=== PATIENT | female | born 1950 | race Caucasian/White ===

== ENCOUNTER 2016-05-04 08:38 | Inpatient (IN) | payer OTHER ==
[~2016-05-04] VITALS: Ht 167.6 cm; Wt 128.8 kg
--- NOTE | ~2016-05-04 | HC ---
[facility] [place] [address] CONSULTATION Name: CHRIS FLORES Room #: 432-P ADM IN M.R.#: [id number] Admission: 05/04/16 Attend Phys: Federico Crenshaw MD Discharge: Date of : 52 Report #: [id number] THIS REPORT FOR: //name// CC: Federico MACKAY HISTORY OF PRESENT ILLNESS: The patient is a 65-year-old white female with history of diabetes mellitus type 2, hypertension, premorbid, intermittent sciatica of the left leg who was admitted with significant bilateral lower extremity weakness and inability to walk. She underwent an MRI scan, which showed multilevel degenerative arthritis with moderate stenosis. She does have significant degenerative arthritis. She indicates she has had gout in the past, but her uric acid was noted to be normal, sed rate was only 14, uric acid was 5.9, which is normal. Neurology has seen her and she was noted to have some signs of neuropathy as well that could be due to her diabetes mellitus or her low B12. B12 was noted to be 313 with folate low at 5.5. She has had significant functional mobility deficits and although she premorbidly was independent and ambulatory. She has been nonambulatory. She has had pain of both feet with weakness of both feet and some pain of the left proximal leg with the prior history of sciatica. She notes that she does not feel her legs will hold her with concerns with buckling of the left knee. PAST MEDICAL HISTORY: Includes cholecystectomy, right rotator cuff repair, prior left total knee replacement, hypertension, jra-leictpj-xyluoflnk diabetes mellitus, morbid obesity, GERD, depression, and anxiety. HABITS: Nonsmoker, history of some ETOH usage. MEDICATIONS: Please see the full medication listing. ALLERGIES: MORPHINE and MEPERIDINE. SOCIAL HISTORY: Lives with her , house one step, did not utilize gait aids and was doing volunteer work. Her works part-time, selling used cars. There is a son that is in and out that can assist. She premorbidly was active and volunteering without gait aids. REVIEW OF SYSTEMS: Left proximal lower extremity pain is better. She has pain and numbness of both distal lower extremities. Denies any hand weakness per se. No chest pain, shortness of breath, or abdominal discomfort. PHYSICAL EXAMINATION: GENERAL: A 65-year-old morbidly obese white female, in no obvious distress. She is alert, oriented, appropriate. VITAL SIGNS: Last recorded weight 284 pounds with height 5 feet 6 inches. HEENT: Appeared to be benign. Cranial nerves are grossly intact. Facies are symmetric. [address] [address] CONSULTATION Name: CHRIS FLORES Room #: 432-P [facility] IN .R.#: [id number] Admission: 05/04/16 Attend Phys: Federico Crenshaw MD Discharge: Date of : 52 Report #: [id number] EXTREMITIES: She has functional range of motion of both upper extremities with good strength of her hand intrinsics. In her lower extremities, her left knee incision is well healed. There is no focal calf swelling. Proximal strength is a grade 4+/5, both lower extremities, hips and knees, but left ankle and right ankle are both only a grade 3+ dorsiflexion, 2+ -3- eversion, bilateral toe dorsiflexion is probably a grade 3+. She does have decreased distal sensation to proprioception bilateral large toes. She is standby assistance with supine to sit, has done some sliding board transfers, but has been unable to ambulate to this point. ASSESSMENT: A 65-year-old white female with the following problem list: 1. Probable polyneuropathy, likely a component of diabetes mellitus and low vitamin B12 and folate. 2. Multiple level degenerative arthritis of her lumbosacral spine. 3. Premorbid sciatica of the left lower extremity. 4. Inability to ambulate with significant functional mobility and activities of daily living deficits. 5. Prior left total knee arthroplasty. 6. Prior history of gout with normal uric acid. PLAN: Therapies are continuing to work with her. Insurance will be checked regarding an acute in-hospital inpatient rehabilitation stay. From a preadmission screening perspective: 1. Prior level of function is well delineated above. 2. Expect level of improvement would be for the patient to improve with her mobility and ADLs, transfers, gait, so that she can hopefully return back to her prior living situation. 3. Evaluation of the patient's risk for clinical complications. She does have multiple medical comorbidities as noted above. 4. Condition that caused the need for rehabilitation would appear to be the multifactorial polyneuropathy as well as the moderate lumbosacral degenerative arthritis and her premorbid sciatica. 5. Treatments needed would include PT and OT 1-1-1/2 hours per day each five days a week throughout the duration of the acute inpatient rehabilitation stay. 6. Anticipated discharge destination would be back to the home setting. 7. We would anticipate home healthcare therapies once ready to return back home. <ELECTRONICALLY SIGNED> By: Gurdeep Thompson MD 05/07/16 1513 1202 1534 Gurdeep Thompson MD /nt
--- NOTE | ~2016-05-04 | EKG ---
[place] [address] [facility] [place] [address] ELECTROCARDIOGRAM REPORT Name: CHRIS FLORES Room #: [facility]#: [id number] Admission: 05/04/16 Attend Phys: Discharge: Date of : 52 Report #: [id number] THIS REPORT FOR: //name// [facility] ED Test Date: 2016-05-04 Test Time: 09:08:03 Pat Name: CHRIS FLORES Department: Room: Gender: F Theatre Manager: noelleregis : 1950 Requested By: Orlando Mason Order Number: [id number] MD: Kelvin Colón Measurements Intervals [place] Rate: 96 P: 18 MA: 187 QRS: 13 QRSD: 95 T: 2 QT: 341 QTc: 431 Interpretive Statements Sinus rhythm Probable left atrial enlargement Low voltage, precordial leads No previous ECG available for comparison Electronically Signed On 05-04-2016 13:18:57 TRAIN CLERK by Kelvin Colón [email or web address] <ELECTRONICALLY SIGNED> By: Kelvin Colón MD 05/04/16 1318 0908 7 Kelvin Colón MD /ROBB
[~2016-05-04 08:38] MED LIST: AMITIZA 24 MCG24 MC1 PO; AVAPRO PO; AXID300 MG PO; AYGESTIN 5 MG TA5 M1 PO; INDAPAMIDE2.5 MG PO; LORTAB 7.5/5001 TA3; NEXIUM40 MG PO; POTASSIUM; WELLBUTRIN PO; [UNRECOGNIZED DRUG - OTHER] PO
[2016-05-04] MEDS ORDERED: METFORMIN HCL500 MG PO (08:42)
[2016-05-04] MEDS ORDERED: ULORIC40 MG PO (08:43)
[2016-05-04] MEDS ORDERED: ASPIRIN325 PO (08:43)
[2016-05-04] MEDS ORDERED: PROAIR HFA8.5 GM (08:44)
[2016-05-04 09:09] LABS: ABSOLUTE NEUTROPHILS 8.4 thou/uL (1.4-8.2); BASOPHILS 0.3 % (0.0-2.0); EOSINOPHILS 0.1 % (0.0-3.0); HEMATOCRIT 41.6 % (37.0-47.0); LYMPHOCYTES 15.3 % (24.0-44.0); MANUAL DIFF NO; MCH 29.3 pg (26.0-34.0); MCHC 33.7 g/dL (28.0-37.0); MONOCYTES 4.4 % (1.0-8.0); PLATELET COUNT 254 thou/uL (150-400); POLYS 79.9 % (36.0-66.0); RBC 4.78 mil/uL (4.20-5.00); RDW 13.9 % (10.5-14.5); WBC 10.5 thou/uL (4.0-11.0)
[2016-05-04 09:43] LABS: ANION GAP 8 mmol/L (7-16); BUN 19 mg/dL (7-18); CALCIUM 8.8 mg/dL (8.5-10.1); CHLORIDE 104 mmol/L (98-107); CO2 25 mmol/L (21-32); CREATININE 1.4 mg/dL (0.6-1.3); GLUCOSE 160 mg/dL (70-99); POTASSIUM 3.7 mmol/L (3.5-5.1); SODIUM 137 mmol/L (136-145)
[2016-05-04 09:51] LABS: ALBUMIN 3.2 g/dL (3.4-5.0); ALKALINE PHOSPHATASE 103 U/L (46-116); SGOT 22 U/L (15-37); SGPT 27 U/L (30-65); TOTAL BILIRUBIN 0.3 mg/dL (<0.1-1.0); TOTAL PROTEIN 6.7 g/dL (6.4-8.2); TROPONIN-I < 0.04 ng/mL (<0.04-0.07)
[2016-05-04 10:51] LABS: URINE BILIRUBIN NEGATIVE (Negative); URINE BLOOD NEGATIVE (Negative); URINE COLOR YELLOW; URINE GLUCOSE-RANDOM* TRACE (Negative); URINE KETONES NEGATIVE (Negative); URINE LEUKOCYTES-REFLEX NEGATIVE (Negative); URINE PROTEIN (DIPSTICK) NEGATIVE (Negative); URINE SPECIFIC GRAVITY 1.015 (1.003-1.035); URINE UROBILINOGEN 0.2 E.U./dl (0.2-1.0)
[2016-05-05 03:07] LABS: GLYCOHEMOGLOBIN (HGB A1C) 7.8 % (4.8-5.6)
[2016-05-05 05:25] LABS: HEMATOCRIT 38.6 % (37.0-47.0); HEMOGLOBIN 12.8 gm/dL (12.0-15.0); MCH 29.1 pg (26.0-34.0); MCHC 33.1 g/dL (28.0-37.0); MCV 87.9 fL (80.0-100.0); RBC 4.39 mil/uL (4.20-5.00); RDW 13.7 % (10.5-14.5); WBC 9.4 thou/uL (4.0-11.0)
[2016-05-05 06:03] LABS: CALCIUM 8.6 mg/dL (8.5-10.1); CREATININE 1.3 mg/dL (0.6-1.3); POTASSIUM 3.4 mmol/L (3.5-5.1)
[2016-05-05 06:05] LABS: CHOLESTEROL 166 mg/dL (<200); HDL CHOLESTEROL 32 mg/dL (>40); LDL CHOLESTEROL 105 mg/dL (<100); TC:HDL 5.2 Ratio (Not establshd); TRIGLYCERIDE 149 mg/dL (<150); URIC ACID* 5.9 mg/dL (2.6-7.2); VLDL 30 mg/dL (<40)
[2016-05-05 06:08] LABS: SERUM ASSESSMENT Clear
[2016-05-05 07:22] LABS: FOLIC ACID 5.5 ng/mL (8.6-58.9); TSH 4.018 uIU/mL (0.358-3.740)
[2016-05-06 06:12] LABS: ABSOLUTE NEUTROPHILS 6.5 thou/uL (1.4-8.2); BASOPHILS 0.7 % (0.0-2.0); EOSINOPHILS 0.9 % (0.0-3.0); HEMATOCRIT 37.7 % (37.0-47.0); HEMOGLOBIN 12.7 gm/dL (12.0-15.0); LYMPHOCYTES 25.1 % (24.0-44.0); MCH 29.5 pg (26.0-34.0); MCHC 33.7 g/dL (28.0-37.0); MCV 87.7 fL (80.0-100.0); MONOCYTES 8.5 % (1.0-8.0); PLATELET COUNT 208 thou/uL (150-400); POLYS 64.8 % (36.0-66.0); RDW 13.9 % (10.5-14.5); WBC 10.1 thou/uL (4.0-11.0)
[2016-05-06 06:22] LABS: CALCIUM 8.6 mg/dL (8.5-10.1); CREATININE 1.5 mg/dL (0.6-1.3); POTASSIUM 3.9 mmol/L (3.5-5.1)
[2016-05-06 06:36] LABS: MANUAL DIFF NO
[2016-05-07] MEDS ORDERED: NORCO 5-325 TA1 EACH PO (12:17)
[2016-05-07] MEDS ORDERED: ASPIRIN325 PO (12:17)
[2016-05-07] MEDS ORDERED: LIPITOR10 MG PO (12:17)
[2016-05-07] MEDS ORDERED: B12INJ IM (12:17)
[2016-05-07] MEDS ORDERED: ENOXAPARIN40 MG/0.1 SUBQ (12:17)
[2016-05-08 15:12] LABS: HEMATOCRIT 35.4 % (37.0-47.0); HEMOGLOBIN 11.7 gm/dL (12.0-15.0); MCH 29.4 pg (26.0-34.0); MCHC 33.1 g/dL (28.0-37.0); MCV 88.9 fL (80.0-100.0); RBC 3.98 mil/uL (4.20-5.00); RDW 14.3 % (10.5-14.5); WBC 8.1 thou/uL (4.0-11.0)
[2016-05-08 15:23] LABS: CALCIUM 8.8 mg/dL (8.5-10.1); CREATININE 1.8 mg/dL (0.6-1.3); MAGNESIUM 1.5 mg/dL (1.8-2.4); POTASSIUM 4.8 mmol/L (3.5-5.1)
[2016-05-13 13:44] LABS: CALCIUM 8.9 mg/dL (8.5-10.1); CREATININE 2.5 mg/dL (0.6-1.3)
== END 2016-05-13 16:02 | DRG 74 ==
LOC: ER 08:38 → EROBS 14:32 → 4E 14:32
PROVIDERS: Family Medicine; Hospitalist; Internal Medicine Geriatric Medicine; Physician Assistant; Psychiatry & Neurology Neurology; Registered Nurse
DX: E11.40 Type 2 diabetes mellitus with diabetic neuropathy, unspecified (principal); Z68.42 Body mass index [BMI] 45.0-49.9, adult; N17.9 Acute kidney failure, unspecified; R20.9 Unspecified disturbances of skin sensation; R53.1 Weakness; I10 Essential (primary) hypertension; R20.0 Anesthesia of skin; M47.897 Other spondylosis, lumbosacral region; K21.9 Gastro-esophageal reflux disease without esophagitis; E66.01 Morbid (severe) obesity due to excess calories; G89.29 Other chronic pain; F32.9 Major depressive disorder, single episode, unspecified; F41.9 Anxiety disorder, unspecified; M54.5 Low back pain; E78.5 Hyperlipidemia, unspecified; R15.9 Full incontinence of feces; R26.9 Unspecified abnormalities of gait and mobility; M10.9 Gout, unspecified; M54.32 Sciatica, left side; Z96.652 Presence of left artificial knee joint; Z88.6 Allergy status to analgesic agent; Z79.4 Long term (current) use of insulin; Z90.49 Acquired absence of other specified parts of digestive tract; Z79.899 Other long term (current) drug therapy
CPT/HCPCS: 10183

== ENCOUNTER 2016-05-23 21:30 | Inpatient (IN) | payer OTHER ==
[~2016-05-23] VITALS: Ht 167.6 cm; Wt 122.6 kg
--- NOTE | ~2016-05-23 | EKG ---
[address] [address] ELECTROCARDIOGRAM REPORT Name: CHRIS FLORES Room #: 311-P ADM IN M.R.#: [id number] Admission: 05/23/16 Attend Phys: Adi Saucedo MD Discharge: Date of : 52 Report #: [id number] THIS REPORT FOR: //name// [facility] ED Test Date: 2016-05-23 Test Time: 21:50:10 Pat Name: CHRIS FLORES Department: Room: [facility] Gender: F Foot Tender: Geoffrey HERRERA : 1950 Requested By: Octavia King Order Number: [id number] MD: Jovan Chowdary Measurements Intervals [place] Rate: 112 P: -42 ND: 137 QRS: 34 QRSD: 78 T: -1 QT: 306 QTc: 418 Interpretive Statements Sinus tachycardia Probable left atrial enlargement Borderline T abnormalities, inferior leads Compared to ECG 05/04/2016 09:08:03 no change Electronically Signed On 05-24-2016 11:26:44 CDT by Jovan Chowdary [email or web address] <ELECTRONICALLY SIGNED> By: Jovan Chowdary MD 05/24/16 1126 49 49 Jovan Chowdary MD /EPI
--- NOTE | ~2016-05-23 | H ---
[facility] [place] [address] HISTORY AND PHYSICAL Name: CHRIS FLORES Room #: 311-P ADM IN M.R.#: [id number] Admission: 05/23/16 Attend Phys: Denae Beck MD Discharge: Date of : 52 Report #: [id number] THIS REPORT FOR: //name// CC: Adi MCCLAIN DATE OF SERVICE: 05/23/2016 ATTENDING PHYSICIAN: Dr. Adi Saucedo. PRIMARY CARE PHYSICIAN: Dr. Russell Mcclain. CHIEF COMPLAINT: Fevers, chills and weakness. HISTORY OF PRESENT ILLNESS: The patient is a 65-year-old obese female who came in to the ER complaining of fever, nausea, vomiting and chills with increasing lower extremity weakness. She was recently admitted here for apparently sudden onset of lower extremity weakness. It has been worse on the right lower extremity and she was having bilateral lower extremity paresthesias with this. Her MRI showed moderate spinal stenosis. She was never evaluated by orthopedic or spinal surgery, but was sent to a rehab facility. She was also seen by pain management and had steroid shots last week, which she says seemed to have helped a little bit. She actually was feeling gaining some strength back and was ambulating better at rehab up until the last 2 days. She says she has been feeling very ill. She has been having fevers with chills, nausea and vomiting. She really has not had much of an appetite and has not been eating much, but is keeping some fluids down. Her weakness has gotten worse over the last 2 days as well. She is denying any abdominal pain. Denies any diarrhea. She actually feels constipated. She was noted in the ER to have significant UTI and has been admitted for further treatment. PAST MEDICAL HISTORY: Renal cancer, diabetes, depression, anxiety, GERD, obesity, diabetic neuropathy, gout, sciatica, hypertension, hyperlipidemia, chronic kidney disease stage III. PAST SURGICAL HISTORY: Left nephrectomy, , right rotator cuff repair, D and C x 2 and a cholecystectomy. ALLERGIES: MORPHINE AND DEMORAL. HOME MEDICATIONS: Phenergan p.r.n., albuterol inhaler p.r.n., Lipitor 10 mg daily, aspirin 325 mg daily, [place] p.r.n., bupropion 450 mg daily, Zofran p.r.n., Nizatidine 300 mg at bedtime, Nexium 40 mg every other day, Glucophage 500 mg b.i.d., vitamin B12 IM daily, Uloric 40 mg daily and Avapro 150 mg daily. SOCIAL HISTORY: The patient denies any tobacco use. She only uses alcohol on [facility] [address] [place] [address] HISTORY AND PHYSICAL Name: SANDRACHRIS J Room #: 311-P [facility] IN M.R.#: [id number] Admission: 05/23/16 Attend Phys: Denae Beck MD Discharge: Date of : 52 Report #: [id number] special occasions. She lives at home with her spouse, but currently is in rehab. FAMILY HISTORY: No significant family history. REVIEW OF SYSTEMS: During her last admission, her creatinine was 2.5 on 05/13 when she was discharged and her baseline creatinine is around 1.8. Otherwise, 12-point review of systems was reviewed with the patient, otherwise negative unless stated in the HPI. PHYSICAL EXAMINATION: GENERAL: The patient is an alert, obese female, in no acute distress. VITAL SIGNS: Temperature max is 39.6, heart rate 118, respirations 26, blood pressure 149/73 on arrival, is now 100/64, oxygen 92% on room air. HEENT: PERRLA. Sclerae is nonicteric. Oral mucosa is pink and dry. NECK: Supple, no JVD is noted. CARDIOVASCULAR: Normal S1, S2. No murmurs, rubs or gallops. RESPIRATORY: Breath sounds are clear bilaterally, somewhat diminished in both bases. Breathing is nonlabored. ABDOMEN: Obese, soft. She is slightly tender in the suprapubic area. Bowel sounds are positive. VASCULAR: 1+ bilateral lower extremity edema. Pedal pulses are 2+. NEUROLOGIC: The patient is alert and oriented x 3. Speech is clear. She is moving all extremities equally. No focal neuro deficits noted. LABORATORY DATA AND DIAGNOSTICS: WBC is 17.9, hemoglobin 12.1, platelets 247. Sodium 133, potassium 4.0, BUN 23, creatinine 2.0, glucose 128. Lactate 1.4 and liver enzymes are normal. CK 660. Troponins negative. BNP is 986. Albumin is 2.8. UA is positive for protein in blood and nitrite and 3+ leukocyte esterase, many wbcs. Chest x-ray showed mild bibasilar atelectasis, but no acute process. EKG shows sinus tachycardia with some PVCs. ASSESSMENT AND PLAN: 1. Systemic inflammatory response syndrome. Likely, related to underlying urinary tract infection. The patient has been admitted for IV antibiotics. We will continue with Rocephin. Urine and blood have been sent for cultures. 2. Bilateral lower extremity weakness. Previously, this was felt to be related to lumbar stenosis. She will continue with physical therapy. She just had steroid injection last week after discharge, which she thinks is helping with the pain. 3. Diabetes type 2. Add sliding scale insulin, but hold metformin because of elevated creatinine. 4. History of hypertension. The patient does have current hypotension likely related to infection. We will hold her home medications and monitor blood pressure closely. 5. Mild rhabdomyolysis. Etiology is unknown. We will gently hydrate and [facility] [address] [place] [address] HISTORY AND PHYSICAL Name: CHRIS FLORES Room #: 311-P ADM IN M.R.#: [id number] Admission: 05/23/16 Attend Phys: Denae Beck MD Discharge: Date of : 52 Report #: [id number] repeat a CPK in the morning. 6. Acute kidney injury on chronic kidney disease stage III. Likely, component of dehydration as well as medications. We will hold metformin and gently hydrate. Repeat labs in the morning. 7. Deep vein thrombosis prophylaxis. Place SCDs. We will continue to follow the patient closely throughout the hospitalization and make changes based on clinical status. <ELECTRONICALLY SIGNED> By: SUNG Sam 05/26/16 0658 0704 0921 SUNG Sam /nt
--- NOTE | ~2016-05-23 | HC ---
[facility] [place] [address] CONSULTATION Name: CHRIS FLORES Room #: 311-P [facility] IN M.RRosalee#: [id number] Admission: 05/23/16 Attend Phys: Denae Beck MD Discharge: 05/28/16 Date of : 51 Report #: [id number] THIS REPORT FOR: //name// CC: Denae MACKAY DATE OF SERVICE: 05/27/2016 HISTORY OF PRESENT ILLNESS: The patient is a 65-year-old white female, previously known to me, with a history of diabetes mellitus type 2, hypertension and premorbid and intermittent sciatica of the left leg, who was previously hospitalized at [facility] with lower extremity weakness and significant functional decline. She was thought to have a probable polyneuropathy, likely a component of diabetes mellitus and low vitamin B12 and folate. She did have some complaints of numbness in the perianal area. No correlation was noted with MRI of the lumbosacral spine per neurology reviewed here at [facility] as well as neurosurgery at . The patient was progressing in her therapies here at [facility] and had achieved to the point where she was ambulating 53 feet contact guard with the walker. An acute rehab stay was denied by her insurance and she is undergoing skilled through [facility]. She was proceeding with her therapies at [facility] and actually got to the point where she noted she was independent and ambulating back and forth to the bathroom with the walker. She unfortunately had an episode of fever, chills, nausea and vomiting and was readmitted to [facility]. She was noted to have significant worsening weakness with this. She was diagnosed with a urinary tract infection with systemic inflammatory response syndrome and was noted to have a solitary right kidney with hydronephrosis and an enlarged bladder. She has had a Calderon catheter placed. Infectious disease is involved. We are seeing her in rehabilitation medicine consultation. She notes she is gradually feeling better. PAST MEDICAL HISTORY: Includes cholecystectomy, right rotator cuff repair, prior left total knee replacement, hypertension, noninsulin-dependent diabetes mellitus, morbid obesity, GERD, depression and anxiety. HABITS: Nonsmoker. History of some ETOH usage. ALLERGIES: MORPHINE and MEPERIDINE. MEDICATIONS: Please see the full medication listing as noted. SOCIAL HISTORY: She was living with her . House, one step. Did not utilize gait aids and was doing voluntary work. Her worked part-time selling used cars. There is a son that is in and out and can assist. She premorbidly had been active in volunteering without gait aids prior to her more recent [facility] admission. [address] [address] CONSULTATION Name: CHRIS FLORES Room #: 311-P DIS IN M.R.#: [id number] Admission: 05/23/16 Attend Phys: Denae Beck MD Discharge: 05/28/16 Date of : 51 Report #: [id number] REVIEW OF SYSTEMS: Again, now she is feeling better as far as the nausea and vomiting. Apparently, was significantly constipation, with nursing working with her on that. She has some pain in the right hip and back, but this is not new. PHYSICAL EXAMINATION: GENERAL: An 65-year-old obese white female, no obvious distress. She is alert, pleasant, oriented. VITAL SIGNS: Last recorded temperature 98.8, pulse 89, respirations 18 and blood pressure 146/75. HEENT: Appeared to be benign. NEUROLOGIC: Cranial nerves are grossly intact. Facies are symmetric. She has functional range of motion of both upper extremities, with strength to grade 4-/5. DTRs are trace to 1. She does have the indwelling Calderon catheter. LOWER EXTREMITIES: Old knee incision is well healed. There is no focal calf swelling. Strength of her lower extremities is probably a grade 4- to 3+/5. DTRs are 1. She does have decreased distal sensation to proprioception, bilateral large toes. She is mod assist with [id number] and is ambulating 25 feet mod assist with a front-wheeled walker. ASSESSMENT: A 65-year-old white female with the following problem list: 1. Bilateral lower extremity weakness, thought to be due to a probable polyneuropathy, likely a component of diabetes mellitus and low vitamin B12 and folate. 2. Multiple-level degenerative arthritis of her lumbosacral spine. 3. Premorbid sciatica of the left lower extremity. Escherichia coli urinary tract infection with sepsis. 4. Mild rhabdomyolysis. 5. Acute renal insufficiency superimposed on chronic kidney disease. 6. Solitary right kidney with hydronephrosis. 7. Right lower lobe and nodular infiltrate. 8. History of renal carcinoma, status post nephrectomy. 9. Diabetes mellitus type 2. 10. Hypertension. PLAN: Encouraged the patient regarding continuing in her therapies to work on improving strength and endurance. Note that case management has worked with her and has her priority list for correction facilities set up. I am in agreement with this plan when she is further medically stabilized and ready for discharge. Thank you for asking us to assist in this patient's care. <ELECTRONICALLY SIGNED> By: Gurdeep Thompson MD 06/01/16 1455 1432 1514 Gurdeep Thompson MD /nt
--- NOTE | ~2016-05-23 | HC ---
[facility] [place] [address] CONSULTATION Name: CHRIS FLORES Geoffrey Room #: 311-P ADM IN M.R.#: [id number] Admission: 05/23/16 Attend Phys: Denae Beck MD Discharge: Date of : 52 Report #: [id number] THIS REPORT FOR: //name// CC: Denae MACKAY INFECTIOUS DISEASE CONSULTATION REASON FOR CONSULTATION: I was asked to evaluate concerning fever. HISTORY OF PRESENT ILLNESS: The patient was a 65-year-old who was admitted on 05/23/2016 with acute onset of fever, chills, nausea, vomiting and generalized weakness. She has been hospitalized prior to this on May 09 with exacerbation of her diabetic neuropathy and chronic back pain. She has underlying diabetes and has a solitary kidney on the right. She was dismissed on May 13, only to return on May 23 with above symptoms. During her stay at the rehabilitation facility, she did have a steroid injection in her lumbar spine. She has also had constipation. No stool output for the last 5 days. She has a chronic cough. No sputum production and no pleuritic chest pain. Denied any dysuria. Denied any flank pain. PAST MEDICAL HISTORY: Renal carcinoma status post left nephrectomy, diabetes, depression, anxiety, gastroesophageal reflux, obesity, diabetic neuropathy, sciatica, spinal stenosis, gout, hypertension, hyperlipidemia, chronic kidney disease, right rotator cuff repair, , cholecystectomy. ALLERGIES: MORPHINE, DEMEROL. MEDICATIONS: As noted on APR, initially ceftriaxone then Zosyn. FAMILY HISTORY: Noncontributory. SOCIAL HISTORY: Negative as described above. Nonsmoker, no significant alcohol intake. REVIEW OF SYSTEMS: Noted above. PHYSICAL EXAMINATION: VITAL SIGNS: Afebrile and hemodynamically stable. Maximum temperature on admission was 103 degrees. She got over a 100 yesterday. Oxygen saturation was normal on room air. She was obese. SKIN: Unremarkable. LYMPH: Unremarkable. HEENT: Unremarkable. NECK: Supple. LUNGS: Clear. HEART: Regular without murmur. [address] [address] CONSULTATION Name: CHRIS FLORES Geoffrey Room #: [facility] IN [facility].#: [id number] Admission: 05/23/16 Attend Phys: Denae Beck MD Discharge: Date of : 52 Report #: [id number] ABDOMEN: Soft, mild tenderness in the lower abdomen. No hepatosplenomegaly or mass. She had an indwelling Calderon catheter that was placed earlier today. No CVA tenderness. EXTREMITIES: Unremarkable. NEUROLOGIC: Nonfocal. LABORATORY STUDIES: CT scan of the abdomen showed solitary right kidney with hydronephrosis and an enlarged bladder along with atelectasis and small area of nodular infiltrate right lower lobe. Blood cultures are negative. Urinalysis: WBCs and bacteria with pansensitive E. coli. Sodium 138, potassium 3.9, bicarbonate 20, creatinine 1.8. CPK 524. BNP 986. Hemoglobin 11, white count 7, platelet count 195,000. Her initial white count was 17.9 on admission. IMPRESSION AND PLAN: A 65-year-old diabetic with solitary right kidney, evidence of urinary outlet obstruction versus neurogenic bladder with hydronephrosis and upper urinary tract infection due to pansensitive E. coli. In addition, she does have small area of nodular infiltrate in the right base. The patient does report chronic cough. Recommend continuing antibiotic coverage with ampicillin and switch to amoxicillin to complete her course of treatment. I think her fever should respond following a Calderon catheter. Question now is whether we are dealing with a neurogenic bladder. Would recommend followup chest x-ray following her antibiotic course to reevaluate the right lower lobe and nodular infiltrate. <ELECTRONICALLY SIGNED> By: Brandon Garrison MD 05/27/16 1115 1822 0054 Brandon Garrison MD /nt
[~2016-05-23 21:30] MED LIST changes: +ASPIRIN325 PO; +B12INJ IM; +ENOXAPARIN40 MG/0.1 SUBQ; +LIPITOR10 MG PO; +METFORMIN HCL500 MG PO; +NORCO 5-325 TA1 EACH PO; +PROAIR HFA8.5 GM PO; +ULORIC40 MG PO
[2016-05-23 21:32] VITALS: BP 149/73
[2016-05-23] MEDS ORDERED: PHENERGAN 25 MG25 MG PO (22:00)
[2016-05-23] MEDS ORDERED: B12INJ IM (22:01)
[2016-05-23 22:03] LABS: HEMATOCRIT 36.6 % (37.0-47.0); HEMOGLOBIN 12.1 gm/dL (12.0-15.0); MCH 28.7 pg (26.0-34.0); MCHC 33.1 g/dL (28.0-37.0); MCV 86.9 fL (80.0-100.0); PLATELET COUNT 247 thou/uL (150-400); RBC 4.22 mil/uL (4.20-5.00); RDW 13.8 % (10.5-14.5); WBC 17.9 thou/uL (4.0-11.0)
[2016-05-23 22:04] LABS: MANUAL DIFF YES
[2016-05-23 22:09] LABS: ANION GAP 10 mmol/L (7-16); BUN 23 mg/dL (7-18); CALCIUM 8.7 mg/dL (8.5-10.1); CHLORIDE 100 mmol/L (98-107); CO2 23 mmol/L (21-32); GLUCOSE 128 mg/dL (70-99); SODIUM 133 mmol/L (136-145)
[2016-05-23 22:20] LABS: ALBUMIN 2.8 g/dL (3.4-5.0); ALKALINE PHOSPHATASE 87 U/L (46-116); NT-PRO BRAIN NAT PEPTIDE 986 pg/mL (<300); SGOT 31 U/L (15-37); SGPT 23 U/L (30-65); TOTAL BILIRUBIN 0.8 mg/dL (<0.1-1.0); TOTAL PROTEIN 6.6 g/dL (6.4-8.2); TROPONIN-I < 0.04 ng/mL (<0.04-0.07)
[2016-05-23 22:31] LABS: ABSOLUTE NEUTROPHILS 14.9 thou/uL (1.4-8.2); POLYCHROMASIA SLIGHT; TOTAL CELL COUNT 100
[2016-05-23 22:50] LABS: URINE BILIRUBIN NEGATIVE (Negative); URINE BLOOD 3+ (Negative); URINE COLOR YELLOW; URINE GLUCOSE-RANDOM* NEGATIVE (Negative); URINE KETONES TRACE (Negative); URINE LEUKOCYTES-REFLEX 3+ (Negative); URINE PROTEIN (DIPSTICK) 2+ (Negative)
[2016-05-23 22:57] LABS: CASTS None Seen /LPF (None Seen); CRYSTALS None Seen /LPF (None Seen); SQUAMOUS 4-10 Moderate /LPF (0-3)
[2016-05-23 22:58] LABS: URINE RBC 3-10 Few /HPF (0-2); URINE WBC-REFLEX >25 Many /HPF (0-5)
[2016-05-24 00:01] VITALS: BP 111/74
[2016-05-24 01:18] VITALS: BP 100/64
[2016-05-24] MEDS ORDERED: ONDANSETRON HCL4 M2 PO (02:15)
[2016-05-24 03:30] VITALS: BP 138/91
[2016-05-24 06:07] LABS: CALCIUM 8.2 mg/dL (8.5-10.1); POTASSIUM 4.1 mmol/L (3.5-5.1)
[2016-05-24 07:15] VITALS: BP 137/64
[2016-05-24 08:37] LABS: HEMATOCRIT 34.2 % (37.0-47.0); HEMOGLOBIN 11.3 gm/dL (12.0-15.0); MCH 28.9 pg (26.0-34.0); MCHC 33.1 g/dL (28.0-37.0); MCV 87.4 fL (80.0-100.0); RBC 3.92 mil/uL (4.20-5.00); RDW 13.8 % (10.5-14.5); WBC 13.6 thou/uL (4.0-11.0)
[2016-05-24 15:20] VITALS: BP 154/87
[2016-05-24 20:00] VITALS: BP 124/73
[2016-05-25 04:00] VITALS: BP 136/73
[2016-05-25 06:21] LABS: HEMATOCRIT 32.5 % (37.0-47.0); HEMOGLOBIN 10.9 gm/dL (12.0-15.0); MCH 29.1 pg (26.0-34.0); MCHC 33.5 g/dL (28.0-37.0); RBC 3.73 mil/uL (4.20-5.00); RDW 13.8 % (10.5-14.5); WBC 9.2 thou/uL (4.0-11.0)
[2016-05-25 06:42] LABS: CALCIUM 8.1 mg/dL (8.5-10.1); CREATININE 1.8 mg/dL (0.6-1.3); POTASSIUM 3.6 mmol/L (3.5-5.1)
[2016-05-25 07:52] VITALS: BP 150/77
[2016-05-25 16:12] VITALS: BP 139/78
[2016-05-25 19:28] VITALS: BP 139/72
[2016-05-26 03:30] VITALS: BP 135/78
[2016-05-26 05:31] LABS: HEMATOCRIT 32.9 % (37.0-47.0); HEMOGLOBIN 11.2 gm/dL (12.0-15.0); MCH 29.4 pg (26.0-34.0); MCHC 33.9 g/dL (28.0-37.0); MCV 86.6 fL (80.0-100.0); RBC 3.8 mil/uL (4.20-5.00); RDW 14.1 % (10.5-14.5)
[2016-05-26 05:52] LABS: CALCIUM 8.6 mg/dL (8.5-10.1); CREATININE 1.8 mg/dL (0.6-1.3); POTASSIUM 3.9 mmol/L (3.5-5.1)
[2016-05-26 08:40] VITALS: BP 129/66
[2016-05-26 15:53] VITALS: BP 102/58
[2016-05-26 20:00] VITALS: BP 118/65
[2016-05-27 04:00] VITALS: BP 122/80
[2016-05-27 06:34] LABS: HEMATOCRIT 32.8 % (37.0-47.0); HEMOGLOBIN 10.9 gm/dL (12.0-15.0); MCH 28.8 pg (26.0-34.0); MCHC 33.3 g/dL (28.0-37.0); MCV 86.7 fL (80.0-100.0); RBC 3.78 mil/uL (4.20-5.00)
[2016-05-27 06:53] LABS: CALCIUM 8.4 mg/dL (8.5-10.1); CREATININE 1.5 mg/dL (0.6-1.3); POTASSIUM 3.7 mmol/L (3.5-5.1)
[2016-05-27 07:39] VITALS: BP 146/75
[2016-05-27 16:27] VITALS: BP 114/77
[2016-05-27 20:30] VITALS: BP 123/78
[2016-05-28 04:00] VITALS: BP 120/73
[2016-05-28 06:29] LABS: HEMATOCRIT 32.6 % (37.0-47.0); HEMOGLOBIN 10.9 gm/dL (12.0-15.0); MCH 29.2 pg (26.0-34.0); MCHC 33.5 g/dL (28.0-37.0); RBC 3.75 mil/uL (4.20-5.00)
[2016-05-28 06:40] LABS: CALCIUM 8.6 mg/dL (8.5-10.1); CREATININE 1.3 mg/dL (0.6-1.3); POTASSIUM 3.8 mmol/L (3.5-5.1)
[2016-05-28 07:53] VITALS: BP 120/77
[2016-05-28] MEDS ORDERED: AMLODIPINE BESY10 MG PO (12:56)
== END 2016-05-28 16:36 | DRG 872 ==
LOC: ER 21:30 → EROBS 23:46 → 3N 23:46
PROVIDERS: Emergency Medicine; Family Medicine; Nurse Practitioner Acute Care
DX: A41.9 Sepsis, unspecified organism (principal); N39.0 Urinary tract infection, site not specified; N17.9 Acute kidney failure, unspecified; M62.82 Rhabdomyolysis; Z68.41 Body mass index [BMI] 40.0-44.9, adult; N13.30 Unspecified hydronephrosis; N12 Tubulo-interstitial nephritis, not specified as acute or chronic; J98.11 Atelectasis; R65.10 Systemic inflammatory response syndrome (SIRS) of non-infectious origin without acute organ dysfunction; E11.22 Type 2 diabetes mellitus with diabetic chronic kidney disease; N18.3 Chronic kidney disease, stage 3 (moderate); E86.0 Dehydration; E66.01 Morbid (severe) obesity due to excess calories; B96.20 Unspecified Escherichia coli [E. coli] as the cause of diseases classified elsewhere; R05 Cough; R91.8 Other nonspecific abnormal finding of lung field; M54.30 Sciatica, unspecified side; M47.897 Other spondylosis, lumbosacral region; E11.40 Type 2 diabetes mellitus with diabetic neuropathy, unspecified; R33.9 Retention of urine, unspecified; F32.9 Major depressive disorder, single episode, unspecified; F41.9 Anxiety disorder, unspecified; K21.9 Gastro-esophageal reflux disease without esophagitis; M10.9 Gout, unspecified; M48.06 Spinal stenosis, lumbar region; G89.29 Other chronic pain; M54.9 Dorsalgia, unspecified; E78.5 Hyperlipidemia, unspecified; I12.9 Hypertensive chronic kidney disease with stage 1 through stage 4 chronic kidney disease, or unspecified chronic kidney disease; Z90.5 Acquired absence of kidney; Z90.49 Acquired absence of other specified parts of digestive tract; Z88.6 Allergy status to analgesic agent; Z79.899 Other long term (current) drug therapy; Z85.528 Personal history of other malignant neoplasm of kidney
CPT/HCPCS: 10096

== ENCOUNTER → 2019-11-28 | Outpatient (CLI) | payer OTHER ==
[~2019-11-28] MED LIST changes: +AMLODIPINE BESY10 MG PO; +ONDANSETRON HCL4 M2 PO; +PHENERGAN 25 MG25 MG PO
== END ==
LOC: SJCVCIMAG 07:48
PROVIDERS: ATTEND Internal Medicine Cardiovascular Disease
DX: I73.9 Peripheral vascular disease, unspecified (principal); I10 Essential (primary) hypertension; R07.9 Chest pain, unspecified; R06.09 Other forms of dyspnea; E11.9 Type 2 diabetes mellitus without complications; E78.00 Pure hypercholesterolemia, unspecified; Z79.899 Other long term (current) drug therapy

== ENCOUNTER → 2019-12-15 | Outpatient (CLI) | payer OTHER | LOC: CAT 08:05 | PROVIDERS: ATTEND Internal Medicine Cardiovascular Disease | DX: Z13.6 Encounter for screening for cardiovascular disorders (principal); I25.10 Atherosclerotic heart disease of native coronary artery without angina pectoris; E78.00 Pure hypercholesterolemia, unspecified ==

== ENCOUNTER → 2019-12-27 | Outpatient (CLI) | payer OTHER | LOC: SJCVCIMAG 12-22 10:31 | PROVIDERS: ATTEND Internal Medicine Cardiovascular Disease | DX: R00.0 Tachycardia, unspecified (principal); I25.10 Atherosclerotic heart disease of native coronary artery without angina pectoris; R60.9 Edema, unspecified; I10 Essential (primary) hypertension; E78.00 Pure hypercholesterolemia, unspecified; E11.9 Type 2 diabetes mellitus without complications; E78.5 Hyperlipidemia, unspecified; K21.9 Gastro-esophageal reflux disease without esophagitis; Z79.82 Long term (current) use of aspirin; Z79.899 Other long term (current) drug therapy ==